=== PATIENT | male | born 1975 | race Hispanic/Latino ===

== ENCOUNTER 2017-01-29 20:34 | Inpatient (IN) | payer MEDICAID, OTHER ==
[2017-01-29 20:35] VITALS: BMI 24.9
[2017-01-29 21:38] LABS: BASO % 0.6 % (0.0-2.0); EOS # 0.2 K/uL (0.0-0.7); EOS % 4.4 % (0.0-4.0); HEMATOCRIT 31.7 % (35.0-51.0); MEAN CELL VOLUME 92.6 fL (80.0-94.0); MEAN CORPUSCULAR HEMOGLOBIN 31.6 pg (27.0-31.0); MEAN CORPUSCULAR HGB CONC 34.1 g/dL (33.0-37.0); MEAN PLATELET VOLUME 7.6 fL (7.2-11.7); MONO # 0.3 K/uL (0.0-0.8); MONO % 7.5 % (0.0-10.0); NRBC % 0.1 % (0.0-2.0); RED CELL DISTRIBUTION WIDTH 15.6 % (11.5-14.5); WHITE BLOOD COUNT 3.7 K/uL (4.8-10.8)
[2017-01-29 21:47] LABS: CHLORIDE 107 mmol/L (98-107); SODIUM 137 mmol/L (132-148)
[2017-01-29 21:48] LABS: POTASSIUM 3.8 mmol/L (3.6-5.2)
[2017-01-29 21:49] LABS: GFR AFRICAN-AMERICAN > 60
[2017-01-29 21:50] LABS: ALB/GLOB RATIO 0.8 (1.0-2.1); ALKALINE PHOSPHATASE 119 U/L (38-126); ALT/SGPT 43 U/L (21-72); AST/SGOT 66 U/L (17-59); BILIRUBIN,TOTAL 2.4 mg/dL (0.2-1.3); BLOOD UREA NITROGEN 8 mg/dL (9-20); CALCIUM 7.8 mg/dl (8.6-10.4); CARBON DIOXIDE 23 mmol/L (22-30); GLUCOSE,RANDOM 92 mg/dL (75-110)
[2017-01-29 21:51] LABS: ALCOHOL SERUM < 10 mg/dl (0-10)
[2017-01-29 22:08] LABS: RBC URINE 3 /hpf (0-3); URINE BACTERIA OCC (<OCC); URINE BILIRUBIN NEGATIVE (NEGATIVE); URINE BLOOD NEGATIVE (NEGATIVE); URINE COLOR Yellow (YELLOW); URINE GLUCOSE (UA) NORMAL (Normal); URINE KETONE NEGATIVE (NEGATIVE); URINE LEUKOCYTE ESTERASE NEG Leu/uL (Negative); URINE PROTEIN NEGATIVE (NEGATIVE); WBC URINE 5 /hpf (0-5)
--- NOTE | 2017-01-30 00:39 | C.PDOC ---
Time Seen by Provider: 01/29/17 22:04 Chief Complaint (Nursing): Psychiatric Evaluation Past Medical History Vital Signs: Last Vital Signs Temp 98.3 F 01/29/17 20:39 Pulse 87 01/29/17 20:39 Resp 16 01/29/17 20:39 BP 136/76 01/29/17 20:39 Pulse Ox 100 01/29/17 20:39 - Medical History PMH: Anxiety, Bipolar Disorder, COPD, Depression, HTN, Post Traumatic Stress Disorder Denies: Diabetes, Hepatitis, HIV, Chronic Kidney Disease, Seizures, Sexually Transmitted Disease Surgical History: Hernia Repair - [facility] Procedures CLOSURE SKIN & SUBCUTANEOUS NEC (03/18/06) DRUG DETOXIFICATION (05/11/15) INJECT/INFUSE ELECTROLYT (07/07/15) INJECT/INFUSE NEC (07/07/15) TETANUS TOXOID ADMINIST (03/18/06) Family History: States: Unknown Family Hx - Social History Hx Tobacco Use: Yes Hx Alcohol Use: No Hx Substance Use: Yes (last use last week (percocet)) - Immunization History Hx Tetanus Toxoid Vaccination: No Hx Influenza Vaccination: No Hx Pneumococcal Vaccination: No ED Course And Treatment - Laboratory Results Result Diagrams: 01/29/17 21:32 01/29/17 21:32 O2 Sat by Pulse Oximetry: 100 Pulse Ox Interpretation: Normal Disposition Discussed With DrBre: Ganesh Wood Comment: accepted the pt on his service and took over the care at 12:37AM Doctor Will See Patient In The: Hospital Counseled Patient/Family Regarding: Studies Performed, Diagnosis - Disposition Disposition: HOSPITALIZED Disposition Time: 21:00 Condition: FAIR - POA Present On Arrival: None - Clinical Impression Clinical Impression: Major depression Decision To Admit - Pt Status Changed To: Hospital Disposition Of: Inpatient - Admit Certification Admit to Inpatient:: After my assessment, the patient will require hospitalization for at least two midnights. This is because of the severity of symptoms shown, intensity of services needed, and/or the medical risk in this patient being treated as an outpatient. - InPatient: Physician Admission Certification: I certify that this patient requires 2 or more midnights of care for the following reason:: After my assessment, the patient will require hospitalization for at least two midnights. This is because of the severity of symptoms shown, intensity of services needed, and/or the medical risk in this patient being treated as an outpatient. - . Bed Request Type: Psychiatry Admitting Physician: Ganesh Wood Patient Diagnosis: Major depression
--- NOTE | 2017-01-30 12:48 | PCM.PSYCH ---
Initial Psychiatric Evaluation - Initial Psychiatric Evaluation Type of Admission: Voluntary Legal Status: Capacity Chief Complaint (in patient's own words): I was feeling suicidal History of Present Illness and Precipitating Events: Patient is a 41 years old male who is currently homeless, came to the ED with a history of major depressive disorder and alcohol use disorder came to the hospital because of depressed mood and suicidal ideation with a plan to kill OD. Patient reports a long history of depressive disorder. As per the patient he has been admitted multiple times in psychiatric hospitals, last discharged from [facility] more than 5 months ago. As per the patient he stopped following up with his psychiatrist and started drinking. He has been drinking more than 6-10 48 oz beers on a daily basis. He stopped drinking 1 weeks ago, but started becoming increasingly depressed. As per the patient he doesnt have any family, and job and doesnt have any place to live. Yesterday he became increasingly depressed and suicidal, so came to the hospital to get help. Patient reports of depressed mood, and reports of feelings of hopelessness or helplessness. He says that, 'there is no use of living like this.' He also reports of anhedonia, poor appetite and insomnia. Patient denies any racing of thoughts, flight of ideas or any manic symptoms. He also denies any auditory or visual hallucinations or any psychotic symptoms. Denies any homicidal ideation. Patient denies any drugs use. Past medical history None Past Psychiatric History - Past Psychiatric History Previous Treatment History: Inpatient Pertinent Medical Hx (Current Medical&Sleep Prob, Allergies): Allergies Allergy/AdvReac Type Severity Reaction Status Date / Time amoxicillin Allergy RASH Verified 01/29/17 20:45 Penicillins Allergy RASH Verified 01/29/17 20:45 No Known Home Med 01/29/17 Review of Systems - Review of Systems All systems: reviewed and no additional remarkable complaints except - Psychiatric Psychiatric: Anxiety, Behavioral Changes, Depression, Suicidal Ideation Mental Status Examination - Affect Affect: Constricted, Depressed - Motor Activity Motor Activity: Calm - Reliability in Providing Information Reliability in Providing Information: Good - Speech Speech: Organized - Mood Mood: Depressed, Anxious - Formal Thought Process Formal Thought Process: Delusions, Paranoia - Obsessions/Compulsions Obsessions: No Compulsions: No - Cognitive Functions Orientation: Person, Place, Situation, Time Sensorium: Alert Attention/Concentration: Attentive Abstract Thinking: [place] Estimate of Intelligence: Below average Judgement: Imparied, as evidence by: Poor judgement, Imparied, as evidence by: Lack of insight into illness - Risk Risk: Suicidal, Diminished functioning - Strength & Assets Inventory Strength & Assets Inventory: Cooperative - Limitations Limitations: Living alone DSM 5 DX - DSM 5 DSM 5 Diagnosis: Major depressive disorder recurrent severe with psychotic features Alcohol use disorder severe Cocaine use disorder moderate - Recommended/Plan of Treatment Treatment Recommendations and Plan of Treatment: Major depressive disorder recurrent severe with psychotic features CBT Psychoeducation Supportive therapy, individual therapy Zoloft 50 mg PO Daily Trazodone 50 mg pO QHS Neurontin 100 mg PO TID Alcohol use disorder severe CBT Psychoeducation Supportive therapy, individual therapy Use [place] for abstinence Cocaine use disorder moderate CBT Psychoeducation Supportive therapy, individual therapy Use [place] for abstinence - Smoking Cessation Smoking Cessation Initiated: No
--- NOTE | 2017-01-31 22:05 | PCM.PYCHPN ---
Psychiatric Progress Note - Psychiatric Progress Note Patient seen today, length of contact: 16 min Patient Chief Complaint: I am still feeling depressed. Problems Identified/Issues Discussed: Patient seen and evaluated, chart reviewed and discussed with the nurse. Pt still reports depressed mood, feelings of hopelessness and helplessness, poor sleep and poor appetite. He appeared disheveled, unkempt and paranoid. However he denies any AVH. He is taking medications and Denies any side effects. Medication Change: Yes (increase zoloft) Medical Record Reviewed: Yes Mental Status Examination - Cognitive Function Orientation: Person, Place, Situation, Time Memory: Intact Attention: WNL Concentration: Poor Association: WNL Fund of Knowledge: Poor - Mood Mood: Depressed, Anxious - Affect Affect: Constricted - Speech Speech: Soft - Formal Thought Process Formal Thought Process: Paranoia - Suicidal Ideation Suicidal Ideation: No - Homicidal Ideation Homicidal Ideation: No Goal/Treatment Plan - Goal/Treatment Plan Need for Continued Stay: Discharge may exacerbated symptoms, Severe functional impairment Progress Toward Problem(s) and Goals/Treatment Plan: Major depressive disorder recurrent severe with psychotic features CBT Psychoeducation Supportive therapy, individual therapy Zoloft 50 mg PO Daily Trazodone 50 mg pO QHS Neurontin 100 mg PO TID Alcohol use disorder severe CBT Psychoeducation Supportive therapy, individual therapy Use [place] for abstinence Cocaine use disorder moderate CBT Psychoeducation Supportive therapy, individual therapy Use [place] for abstinence - Smoking Cessation Smoking Cessation Initiated: No
--- NOTE | 2017-02-01 13:55 | PCM.PYCHPN ---
Psychiatric Progress Note - Psychiatric Progress Note Patient seen today, length of contact: 16 min Patient Chief Complaint: I am still feeling depressed. Problems Identified/Issues Discussed: Patient seen and evaluated, chart reviewed and discussed with the nurse. Patient says that he is still feeling down. He also complains of muscle aches. He appears disheveled and unkempt. Patient is still internally preoccupied with the of this friend and saying repeatedly that, 'my friends on me.' He reports that he has been having a poor appetite because everything tastes weird. He also admits to sleeping excessively due to constant fatigue. Patient also admits to persecutory delusions but denies auditory or visual hallucinations or suicidal or homicidal ideations. Medication Change: Yes (increase zoloft, start risperdal) Medical Record Reviewed: Yes Mental Status Examination - Cognitive Function Orientation: Person, Place, Situation, Time Memory: Intact Attention: WNL Concentration: Poor Association: WNL Fund of Knowledge: Poor - Mood Mood: Depressed, Anxious - Affect Affect: Constricted - Speech Speech: Soft - Formal Thought Process Formal Thought Process: Paranoia - Suicidal Ideation Suicidal Ideation: No - Homicidal Ideation Homicidal Ideation: No Goal/Treatment Plan - Goal/Treatment Plan Need for Continued Stay: Discharge may exacerbated symptoms, Severe functional impairment Progress Toward Problem(s) and Goals/Treatment Plan: Major depressive disorder recurrent severe with psychotic features CBT Psychoeducation Supportive therapy, individual therapy Zoloft 100 mg PO Daily Trazodone 50 mg pO QHS Neurontin 100 mg PO TID Risperdal 1 mg pO QHS Cogentin 1 mg PO QHS Alcohol use disorder severe CBT Psychoeducation Supportive therapy, individual therapy Use [place] for abstinence Cocaine use disorder moderate CBT Psychoeducation Supportive therapy, individual therapy Use [place] for abstinence - Smoking Cessation Smoking Cessation Initiated: No
--- NOTE | 2017-02-02 10:53 | PCM.PYCHPN ---
Psychiatric Progress Note - Psychiatric Progress Note Patient seen today, length of contact: 16 min Patient Chief Complaint: I am still feeling depressed. Problems Identified/Issues Discussed: Patient seen and evaluated, chart reviewed and discussed with the nurse. 41 yo M on follow up presents with chief complaint sleepy and depressed. Reports that he sleeps excessively and is only awake for about 3 hours a day. Patient is experiencing anxiety concerning his friend's , and he feels that people are out to get him. General impression is that patient is depressed, tired, slow moving. Patient is experiencing nausea, body aches, congestion with epistaxis. Medication side effects include feeling like his hands are weak. Denies thoughts of hurting himself, hurting other people, seeing and hearing things that are not there, feeling like he is being followed , shortness of breath, chest pain, fever, vomiting, abdominal pain, headaches. Medication Change: Yes (increase zoloft, stop risperdal, start remeron) Medical Record Reviewed: Yes Mental Status Examination - Cognitive Function Orientation: Person, Place, Situation, Time Memory: Intact Attention: WNL Concentration: Poor Association: WNL Fund of Knowledge: Poor - Mood Mood: Depressed, Anxious - Affect Affect: Constricted - Speech Speech: Soft - Formal Thought Process Formal Thought Process: Paranoia - Suicidal Ideation Suicidal Ideation: No - Homicidal Ideation Homicidal Ideation: No Goal/Treatment Plan - Goal/Treatment Plan Need for Continued Stay: Discharge may exacerbated symptoms, Severe functional impairment Progress Toward Problem(s) and Goals/Treatment Plan: Major depressive disorder recurrent severe with psychotic features CBT Psychoeducation Supportive therapy, individual therapy Zoloft 150 mg PO Daily Start remeron 15 mg PO QHS Trazodone 150 mg pO QHS Neurontin 100 mg PO TID D/C Risperdal 1 mg pO QHS D/C Cogentin 1 mg PO QHS Alcohol use disorder severe CBT Psychoeducation Supportive therapy, individual therapy Use [place] for abstinence Cocaine use disorder moderate CBT Psychoeducation Supportive therapy, individual therapy Use [place] for abstinence - Smoking Cessation Smoking Cessation Initiated: No
[2017-02-03] MEDS ORDERED: Aluminum Hydroxide/Magnesium Hydroxide Susp (30 mL) PO STA (01:06)
--- NOTE | 2017-02-03 13:23 | PCM.PYCHPN ---
Psychiatric Progress Note - Psychiatric Progress Note Patient seen today, length of contact: 16 min Patient Chief Complaint: I am still feeling depressed. Problems Identified/Issues Discussed: Patient seen and evaluated, chart reviewed and discussed with the nurse. 41 yo M was discussed at the morning meeting and it was reported that he was depressed, delusional feeling that there were people out to get him, vomiting undigested food, and nosebleeds. Upon follow up patient reports he if feeling better compared to yesterday, does not feel like people are out to get him, but feels intermittently that he wants to join his friend. Patient states that he continues to constantly thinking about his friend dying and trying to resuscitate him. Slept about 4 hours, waking up twice. Patient is tired, vomits when eats, positive for congestion, intermittent epistaxis, heart burn that was treated with Maalox. Denies wanting to hurt self or others, hearing or seeing things that are not there, nausea, sweating. General impression includes depressed affect and persistent thought pattern of friend. Medication Change: Yes (increase zoloft, start Seroquel) Medical Record Reviewed: Yes Mental Status Examination - Cognitive Function Orientation: Person, Place, Situation, Time Memory: Intact Attention: WNL Concentration: Poor Association: WNL Fund of Knowledge: Poor - Mood Mood: Depressed, Anxious - Affect Affect: Constricted - Speech Speech: Soft - Formal Thought Process Formal Thought Process: Delusions, Paranoia - Suicidal Ideation Suicidal Ideation: No - Homicidal Ideation Homicidal Ideation: No Goal/Treatment Plan - Goal/Treatment Plan Need for Continued Stay: Discharge may exacerbated symptoms, Severe functional impairment Progress Toward Problem(s) and Goals/Treatment Plan: Major depressive disorder recurrent severe with psychotic features CBT Psychoeducation Supportive therapy, individual therapy Zoloft 200 mg PO Daily Remeron 15 mg PO QHS Trazodone 150 mg pO QHS Neurontin 100 mg PO TID Seroquel 50 mg PO BID Alcohol use disorder severe CBT Psychoeducation Supportive therapy, individual therapy Use [place] for abstinence Cocaine use disorder moderate CBT Psychoeducation Supportive therapy, individual therapy Use [place] for abstinence - Smoking Cessation Smoking Cessation Initiated: No
--- NOTE | 2017-02-04 13:22 | PCM.PYCHPN ---
Psychiatric Progress Note - Psychiatric Progress Note Patient seen today, length of contact: 16 min Patient Chief Complaint: I am feeling depressed. Problems Identified/Issues Discussed: Patient seen and evaluated, chart reviewed and discussed with the nurse. As per the staff, pt remained isolated and withdrawn. He reports depressed mood and at times feelings of hopelessness and helplessness. He reports a bit improvement in his mood and thoughts process. His symptoms are improving but needs more time to stabilize. After care discussed, support and psychoeducation given. Medication Change: Yes (increase zoloft, start Seroquel) Medical Record Reviewed: Yes Mental Status Examination - Cognitive Function Orientation: Person, Place, Situation, Time Memory: Intact Attention: WNL Concentration: Poor Association: WNL Fund of Knowledge: Poor - Mood Mood: Depressed, Anxious - Affect Affect: Constricted - Speech Speech: Soft - Formal Thought Process Formal Thought Process: Delusions, Paranoia - Suicidal Ideation Suicidal Ideation: No - Homicidal Ideation Homicidal Ideation: No Goal/Treatment Plan - Goal/Treatment Plan Need for Continued Stay: Discharge may exacerbated symptoms, Severe functional impairment Progress Toward Problem(s) and Goals/Treatment Plan: Major depressive disorder recurrent severe with psychotic features CBT Psychoeducation Supportive therapy, individual therapy Zoloft 200 mg PO Daily Remeron 15 mg PO QHS Trazodone 150 mg pO QHS Neurontin 100 mg PO TID Seroquel 50 mg PO BID Alcohol use disorder severe CBT Psychoeducation Supportive therapy, individual therapy Use [place] for abstinence Cocaine use disorder moderate CBT Psychoeducation Supportive therapy, individual therapy Use [place] for abstinence
[2017-02-04] MEDS: Aluminum Hydroxide/Magnesium Hydroxide Susp (30 mL) PO PRN (19:49)
--- NOTE | 2017-02-05 10:25 | PCM.PYCHPN ---
Psychiatric Progress Note - Psychiatric Progress Note Patient seen today, length of contact: 16 min Patient Chief Complaint: I am feeling depressed. Problems Identified/Issues Discussed: Patient seen and evaluated, chart reviewed and discussed with nurse. 41 yo M was discussed at the morning meeting and it was reported that he is social, slept well, well kept, visible improvement. Upon follow up patient reports he if feeling better compared to yesterday, experiencing some depression. Describes mood including intermittent agitation, denies anxiety and anger. Slept well for 7 hours, only woke up to use the restroom. Positive for body aches, nonpruritic rash bilaterally above the ankles, decreased appetite. Patient reports medication side effects of foggy brain and slowness that began once he started the medications. Denies wanting to hurt self or others, hearing or seeing things that are not there, feeling like people are out to get him or following him. Denies chest pain, shortness of breath, headache, nausea, vomiting, abdominal pain, fever, chills, sweating, shaking. Patient's plan after discharge includes a homeless nursing home and outpatient treatment. General impression includes depressed mood improvement from yesterday, slow demeanor. Medication Change: Yes (increase zoloft, start Seroquel, medicine consulted) Medical Record Reviewed: Yes Mental Status Examination - Cognitive Function Orientation: Person, Place, Situation, Time Memory: Intact Attention: WNL Concentration: Poor Association: WNL Fund of Knowledge: Poor - Mood Mood: Depressed, Anxious - Affect Affect: Constricted - Speech Speech: Soft - Formal Thought Process Formal Thought Process: Delusions, Paranoia - Suicidal Ideation Suicidal Ideation: No - Homicidal Ideation Homicidal Ideation: No Goal/Treatment Plan - Goal/Treatment Plan Need for Continued Stay: Discharge may exacerbated symptoms, Severe functional impairment Progress Toward Problem(s) and Goals/Treatment Plan: Major depressive disorder recurrent severe with psychotic features CBT Psychoeducation Supportive therapy, individual therapy Zoloft 200 mg PO Daily Remeron 15 mg PO QHS Trazodone 150 mg pO QHS Neurontin 100 mg PO TID Seroquel 50 mg PO BID Alcohol use disorder severe CBT Psychoeducation Supportive therapy, individual therapy Use [place] for abstinence Cocaine use disorder moderate CBT Psychoeducation Supportive therapy, individual therapy Use [place] for abstinence
--- NOTE | 2017-02-05 11:39 | CP.PCM.CON ---
<Ba Nugent - Last Filed: 02/05/17 19:10> History of Present Illness - History of Present Illness History of Present Illness: CC: rash HPI: 41 year old male with PMHx significant for untreated HCV diagnosed 13 years ago, left ear cholesteatoma, history of suicide and depression presents with new onset bilateral erythematous rash with mild swelling on shins. Patient states that the rash just appeared three days ago. He denies any trauma, shaving of legs, new colognes, new clothing or detergent or lotions applied to the area. Patient initially presented January 30, 2017 to [facility] after having suicidal ideations with intent. Patient states that he did not have the rash on admission however it just apeared. Patient cannot think of any factors that might have brought on this onset. Patient states that he was diagnosed with HCV 13 years ago and learned of the results through labwork testing at [facility]. Patient states that he never sought out treatment options because he was not sure where to go. At this time, patient denies subjective fevers or chills, nausea, vomiting, diarrhea, constipation, chest pain, palpitations, or pain at the site at this time. PMHX- as mentioned above PSHx- surgery for cholesteatoma removal; inguinal repair Fam Hx- Dad had a tumor ( unspecified) Meds- Refer to current MAR ( Maalox, Clonidine, Gabapentin, Ibuprofen, Remeron , Seroquel, Zoloft, Trazodone Social Hx- smokes 8 cigarettes a day, former heroin user ( last used 3 wks ago) Patient used to inject himself years prior but in recent years, snorts heroin, former cocaine user ( last used years ago) chronic alcohol use (6-7 beers a day) Allergies- Amoxicillin results in hives Review of Systems - Constitutional Constitutional: absent: Daytime Sleepiness, Excessive Sweating, Frequent Falls, Headache - EENT Eyes: absent: Blurred Vision, Change in Vision Ears: absent: Ear Discharge, Ear Pain Nose/Mouth/Throat: absent: Nasal Congestion, Nasal Discharge - Cardiovascular Cardiovascular: absent: Chest Pain, Chest Pain at Rest - Respiratory Respiratory: absent: Dyspnea, Hemoptysis, Dyspnea on Exertion - Gastrointestinal Gastrointestinal: absent: Abdominal Pain, Nausea, Vomiting - Genitourinary Genitourinary: absent: Dysuria, Freq UTI - Musculoskeletal Musculoskeletal: absent: Back Pain, Loss of Height - Integumentary Integumentary: Change in Pigmentation, Dry Skin, Rash, Swelling. absent: Bleeding Lesions, Change in Hair, Pruritus, Skin Pain, Wounds - Neurological Neurological: absent: Abnormal Hearing, Abnormal Movements, Confusion - Psychiatric Psychiatric: Anxiety. absent: Anhedonia, Depression - Endocrine Endocrine: absent: Change in Body Appearance, Fatigue - Hematologic/Lymphatic Hematologic: absent: Easy Bleeding, Easy Bruising Past Patient History - Infectious Disease Hx of Infectious Diseases: None - Tetanus Immunizations Tetanus Immunization: Unknown - Past Social History Smoking Status: Light Smoker < 10 Cigarettes Daily Alcohol: > 2 Drinks/Day Drugs: Cocaine, Opiates - CARDIAC Hx Cardiac Disorders: No - PULMONARY Hx Respiratory Disorders: No - NEUROLOGICAL Hx Neurological Disorder: No Hx Seizures: No - HEENT Hx HEENT Problems: Yes Other/Comment: Apparent hearing deficit OD - RENAL Hx Chronic Kidney Disease: No - ENDOCRINE/METABOLIC Hx Endocrine Disorders: No - HEMATOLOGICAL/ONCOLOGICAL Hx Blood Disorders: No Hx AIDS: No Hx Anemia: No Hx Blood Transfusions: No Hx Blood Transfusion Reaction: No Hx Bruising: No Hx Cancer: No Hx Chemotherapy: No Hx Cirrhosis: Yes (Fatty/No Ascites, Pancytopenia) Hx Hepatitis C: Yes Hx Human Immunodeficiency Virus (HIV): No Other/Comment: Pancytopenia - INTEGUMENTARY Hx Dermatological Problems: No - MUSCULOSKELETAL/RHEUMATOLOGICAL Hx Musculoskeletal Disorders: No - GASTROINTESTINAL Hx Gastrointestinal Disorders: Yes (ventral hernia) Hx Fatty Liver Disease: Yes Hx Liver Failure: Yes (Fatty Liver disease. Non-ascites.) Other/Comment: Edema secondary to Portal Hypertension - GENITOURINARY/GYNECOLOGICAL Hx Genitourinary Disorders: No Hx Sexually Transmitted Disorders: No - PSYCHIATRIC Hx Substance Use: Yes - SURGICAL HISTORY Hx Surgeries: No Other/Comment: left ear - ANESTHESIA Hx Anesthesia: No Hx Anesthesia Reactions: (severe nausea) Meds Allergies/Adverse Reactions: Allergies Allergy/AdvReac Type Severity Reaction Status Date / Time amoxicillin Allergy RASH Verified 01/29/17 20:45 Penicillins Allergy RASH Verified 01/29/17 20:45 - Medications Medications: Current Medications Al Hydrox/Mg Hydrox/Simethicone (Maalox 30 Ml) 30 ml PO Q8H PRN PRN Reason: Indigestion / Heartburn Last Admin: 04/27/17 19:49 Dose: 30 ml Clonidine HCl (Catapres) 0.1 mg PO Q6 PRN PRN Reason: opiate withdrawal Gabapentin (Neurontin) 100 mg PO TID [facility] Last Admin: 02/05/17 11:16 Dose: Not Given Hydroxyzine HCl (Atarax) 25 mg PO Q6 PRN PRN Reason: Anxiety Last Admin: 02/03/17 21:01 Dose: 25 mg Ibuprofen (Motrin Tab) 600 mg PO Q6 PRN PRN Reason: Pain, moderate (4-7) Last Admin: 02/03/17 21:01 Dose: 600 mg Mirtazapine (Remeron) 15 mg PO HS [facility] Last Admin: 02/04/17 22:23 Dose: 15 mg Quetiapine Fumarate (Seroquel) 50 mg PO BID [facility] Last Admin: 02/05/17 11:16 Dose: Not Given Sertraline HCl (Zoloft) 200 mg PO DAILY [facility] Last Admin: 02/05/17 11:16 Dose: Not Given Trazodone HCl (Desyrel) 100 mg PO HS PRN PRN Reason: Insomnia Last Admin: 02/04/17 22:23 Dose: 100 mg Physical Exam - Constitutional Appears: Non-toxic, No Acute Distress - Head Exam Head Exam: ATRAUMATIC, NORMAL INSPECTION, NORMOCEPHALIC - Eye Exam Eye Exam: EOMI, Normal appearance, PERRL Pupil Exam: NORMAL ACCOMODATION - ENT Exam ENT Exam: Mucous Membranes Moist - Neck Exam Neck exam: Positive for: Full Rom, Normal Inspection - Respiratory Exam Respiratory Exam: NORMAL BREATHING PATTERN. absent: Wheezes - Cardiovascular Exam Cardiovascular Exam: +S1, +S2 - GI/Abdominal Exam GI & Abdominal Exam: Normal Bowel Sounds, Soft - Extremities Exam Extremities exam: Positive for: full ROM, normal capillary refill, pedal edema ( trace), pedal pulses present. Negative for: calf tenderness, joint swelling, tenderness Additional comments: erythematous rash on shins bilaterally - Back Exam Back exam: FULL ROM, NORMAL INSPECTION - Neurological Exam Neurological exam: Alert, CN II-XII Intact, Oriented x3 - Psychiatric Exam Psychiatric exam: Anxious - Skin Skin Exam: Dry, Erythema (b/l shins limited to anterior region and some posterior), Intact, Warm Additional comments: superficial vasculature identified on feet b/l Results - Vital Signs Recent Vital Signs: Last Vital Signs Temp 97.5 F L 02/05/17 07:58 Pulse 81 02/05/17 07:58 Resp 20 02/05/17 07:58 BP 125/63 02/05/17 07:58 Pulse Ox 99 01/31/17 07:36 - Labs Result Diagrams: 02/05/17 17:05 02/05/17 17:05 Assessment & Plan (1) Contact eczematous dermatitis Assessment and Plan: Triamcinolone cream applied topically to affected shins twice a day Status: Acute (2) Pancytopenia Assessment and Plan: Thrombocytopenia: Platelets 55-> 52 Consider anemia workup. Hold NSAIDs at this time F/U Venous dopplers Monitor cell counts Discourage excessive alcohol intake Status: Acute (3) HCV (hepatitis C virus) Assessment and Plan: Hx of Hepatitis diagnosed 13 years ago Pt denies ever being treated Follow up Hepatitis panel/ HIV panel Discourage polysubstance use- Patient counseled. Status: Chronic (4) Polysubstance abuse Assessment and Plan: Hx of cocaine, heroin and alcohol use Hx of HCV Patient counseled; coping mechanisms discussed Management per Psych Status: Chronic (5) Depression with suicidal ideation Assessment and Plan: Management per psych Status: Acute (6) Prophylactic measure Assessment and Plan: Ambulates at this time Hold all NSAIDs at this time to decrease risk of bleeding Status: Acute <Mercedez Polanco V - Last Filed: 02/06/17 23:24> Meds - Medications Medications: Current Medications Al Hydrox/Mg Hydrox/Simethicone (Maalox 30 Ml) 30 ml PO Q8H PRN PRN Reason: Indigestion / Heartburn Last Admin: 02/06/17 22:17 Dose: 30 ml Clonidine HCl (Catapres) 0.1 mg PO Q6 PRN PRN Reason: opiate withdrawal Gabapentin (Neurontin) 100 mg PO TID [facility] Last Admin: 02/06/17 18:12 Dose: Not Given Hydroxyzine HCl (Atarax) 25 mg PO Q6 PRN PRN Reason: Anxiety Last Admin: 02/03/17 21:01 Dose: 25 mg Quetiapine Fumarate (Seroquel) 50 mg PO BID [facility] Last Admin: 02/06/17 18:12 Dose: Not Given Sertraline HCl (Zoloft) 200 mg PO DAILY [facility] Last Admin: 02/06/17 10:13 Dose: Not Given Trazodone HCl (Desyrel) 100 mg PO HS PRN PRN Reason: Insomnia Last Admin: 02/06/17 22:17 Dose: 100 mg Triamcinolone Acetonide (Kenalog 0.1% Cream) 0 appl TOP BID [facility] Last Admin: 02/06/17 19:43 Dose: 1 appl Results - Vital Signs Recent Vital Signs: Last Vital Signs Temp 97.5 F L 02/06/17 07:35 Pulse 76 02/06/17 16:56 Resp 18 02/06/17 07:35 BP 129/68 02/06/17 16:56 Pulse Ox 99 02/06/17 07:35 - Labs Result Diagrams: 02/06/17 08:18 02/06/17 08:18 Labs: Laboratory Results - last 24 hr 02/05/17 02/06/17 02/06/17 17:05 08:18 08:18 WBC 2.6 L RBC 3.56 L Hgb 11.2 L Hct 33.3 L MCV 93.7 MCH 31.4 H MCHC 33.6 RDW 15.8 H Plt Count 48 L MPV 8.0 Neut % (Auto) 52.8 Lymph % (Auto) 29.5 [place] % (Auto) 9.0 Eos % (Auto) 7.5 H Baso % (Auto) 1.2 Neut # 1.4 L Lymph # 0.8 L [place] # 0.2 Eos # 0.2 Baso # 0.0 Sodium 139 Potassium 3.8 Chloride 108 H Carbon Dioxide 22 Anion Gap 13 BUN 10 Creatinine 0.5 L Est GFR ( Amer) > 60 Est GFR (Non-Af Amer) > 60 Random Glucose 80 Calcium 7.8 L Phosphorus 4.0 Magnesium 1.9 Total Bilirubin 2.3 H AST 52 ALT 31 Alkaline Phosphatase 88 Total Protein 5.8 L Albumin 2.4 L Globulin 3.3 Albumin/Globulin Ratio 0.7 L Hep Bs Ag Neutralizatn Confirmed positive H Attending/Attestation - Attestation I have personally seen and examined this patient.: Yes I have fully participated in the care of the patient.: Yes I have reviewed all pertinent clinical information: Yes Notes (Text): This is late computer entry for 02/05/17. Patient seen, examined and case discussed with day-time resident. Patient reporting rash over anterior portion over ankles for past 3 days. Patient denies associated pruritus, denies edema, denies pus, denies skin breakdown. patient denies any known allergies including nickel, metal, denies wearing at ankle bracelets, new socks, new clothing, denies new creams/lotions or anything being currently applied to the area. Note: patient is pancytopenia, patient has a history of untreated hepatitis C and B per EMR. Upon review of EMR, patient has history of hepatic cirrhosis and current drug use. Patient does not have any petechiae or skin manifestation of livedo reticularis and no bleeding episodes. Patient ordered for lower extremity doppler r/o dv given mild trace edema located bilateral ankles but have low suspicion for DVT. Patient ordered for blood work today. Patient is pancytopenic; will continue to monitor and will need referral to heme-onc as outpatient; contributing factors including hepatitis c, hepatic cirrhosis, and associated drug use. Repeat hepatitis and HIV today. Patient started on triamincolone cream for rash which appears like eczema. Will continue to monitor. Discontinue NSAID given hx of hepatitis C/Hepatic cirrhosis, and pancytopenia in addition to reduce bleeding risk.
[2017-02-05 17:15] LABS: BASO % 0.8 % (0.0-2.0); EOS # 0.2 K/uL (0.0-0.7); EOS % 5.5 % (0.0-4.0); HEMATOCRIT 33.3 % (35.0-51.0); LYMPH # 0.9 K/uL (1.0-4.3); LYMPH % 27.3 % (20.0-40.0); MEAN CELL VOLUME 93.7 fL (80.0-94.0); MEAN CORPUSCULAR HEMOGLOBIN 31.4 pg (27.0-31.0); MEAN CORPUSCULAR HGB CONC 33.5 g/dL (33.0-37.0); MEAN PLATELET VOLUME 8.1 fL (7.2-11.7); MONO # 0.3 K/uL (0.0-0.8); MONO % 9.6 % (0.0-10.0); RED CELL DISTRIBUTION WIDTH 15.7 % (11.5-14.5); WHITE BLOOD COUNT 3.3 K/uL (4.8-10.8)
[2017-02-05 17:24] LABS: CHLORIDE 105 mmol/L (98-107)
[2017-02-05 17:25] LABS: POTASSIUM 4.4 mmol/L (3.6-5.2); SODIUM 139 mmol/L (132-148)
[2017-02-05 17:27] LABS: ALB/GLOB RATIO 0.8 (1.0-2.1); ALKALINE PHOSPHATASE 119 U/L (38-126); AST/SGOT 51 U/L (17-59); BLOOD UREA NITROGEN 11 mg/dL (9-20); CARBON DIOXIDE 23 mmol/L (22-30); GFR AFRICAN-AMERICAN > 60; TOTAL PROTEIN 6.1 g/dL (6.3-8.3)
[2017-02-05 17:28] LABS: ALT/SGPT 44 U/L (21-72); CALCIUM 8.1 mg/dl (8.6-10.4); GLUCOSE,RANDOM 105 mg/dL (75-110); PHOSPHOROUS 4.5 mg/dL (2.5-4.5)
[2017-02-06 08:27] LABS: BASO % 1.2 % (0.0-2.0); EOS # 0.2 K/uL (0.0-0.7); EOS % 7.5 % (0.0-4.0); HEMATOCRIT 33.3 % (35.0-51.0); LYMPH # 0.8 K/uL (1.0-4.3); LYMPH % 29.5 % (20.0-40.0); MEAN CELL VOLUME 93.7 fL (80.0-94.0); MEAN CORPUSCULAR HEMOGLOBIN 31.4 pg (27.0-31.0); MEAN CORPUSCULAR HGB CONC 33.6 g/dL (33.0-37.0); MONO # 0.2 K/uL (0.0-0.8); NRBC % 0.1 % (0.0-2.0); RED CELL DISTRIBUTION WIDTH 15.8 % (11.5-14.5); WHITE BLOOD COUNT 2.6 K/uL (4.8-10.8)
[2017-02-06 08:55] LABS: CHLORIDE 108 mmol/L (98-107)
[2017-02-06 08:56] LABS: POTASSIUM 3.8 mmol/L (3.6-5.2); SODIUM 139 mmol/L (132-148)
[2017-02-06 08:58] LABS: ALB/GLOB RATIO 0.7 (1.0-2.1); ALKALINE PHOSPHATASE 88 U/L (38-126); ALT/SGPT 31 U/L (21-72); AST/SGOT 52 U/L (17-59); BILIRUBIN,TOTAL 2.3 mg/dL (0.2-1.3); BLOOD UREA NITROGEN 10 mg/dL (9-20); CARBON DIOXIDE 22 mmol/L (22-30); GFR AFRICAN-AMERICAN > 60; GLUCOSE,RANDOM 80 mg/dL (75-110); TOTAL PROTEIN 5.8 g/dL (6.3-8.3)
[2017-02-06 08:59] LABS: CALCIUM 7.8 mg/dl (8.6-10.4); MAGNESIUM 1.9 mg/dL (1.6-2.3)
--- NOTE | 2017-02-06 09:15 | CP.PCM.PN ---
<RashadHeather lantigua - Last Filed: 02/06/17 15:38> Subjective - Date & Time of Evaluation Date of Evaluation: 02/06/17 Time of Evaluation: 09:11 - Subjective Subjective: Patient seen and examined at bedside. Patient is comfortable and has no complaints currently. He continues to have rash to bilateral ankles. He denies pain or pruritus to area. Patient denies coming in contact with new materials or wearing clothing to ankles. He denies other symptoms including chest pain, shortness of breath, abdominal pain, nausea, vomiting, diarrhea and constipation. Patient instructed he will need to follow-up in the clinic upon discharge for liver function test as he has Hepatitis C and likely Hepatitis B as well. Objective - Vital Signs/Intake and Output Vital Signs (last 24 hours): Temp Pulse Resp BP Pulse Ox 97.5 F L 19 L 18 98/54 L 99 02/06/17 07:35 02/06/17 07:35 02/06/17 07:35 02/06/17 07:35 02/06/17 07:35 - Medications Medications: Current Medications Al Hydrox/Mg Hydrox/Simethicone (Maalox 30 Ml) 30 ml PO Q8H PRN PRN Reason: Indigestion / Heartburn Last Admin: 02/04/17 19:49 Dose: 30 ml Clonidine HCl (Catapres) 0.1 mg PO Q6 PRN PRN Reason: opiate withdrawal Gabapentin (Neurontin) 100 mg PO TID [facility] Last Admin: 02/05/17 17:45 Dose: Not Given Hydroxyzine HCl (Atarax) 25 mg PO Q6 PRN PRN Reason: Anxiety Last Admin: 02/03/17 21:01 Dose: 25 mg Mirtazapine (Remeron) 15 mg PO HS [facility] Last Admin: 02/05/17 22:40 Dose: Not Given Quetiapine Fumarate (Seroquel) 50 mg PO BID [facility] Last Admin: 02/05/17 17:46 Dose: Not Given Sertraline HCl (Zoloft) 200 mg PO DAILY [facility] Last Admin: 02/05/17 11:16 Dose: Not Given Trazodone HCl (Desyrel) 100 mg PO HS PRN PRN Reason: Insomnia Last Admin: 02/05/17 22:40 Dose: 100 mg Triamcinolone Acetonide (Kenalog 0.1% Cream) 0 appl TOP BID [facility] - Labs Labs: 02/06/17 08:18 02/06/17 08:18 - Constitutional Appears: Non-toxic, No Acute Distress - Head Exam Head Exam: ATRAUMATIC, NORMAL INSPECTION, NORMOCEPHALIC - Eye Exam Eye Exam: EOMI, Normal appearance - ENT Exam ENT Exam: Mucous Membranes Moist - Neck Exam Neck Exam: Normal Inspection - Respiratory Exam Respiratory Exam: Clear to Ausculation Bilateral, NORMAL BREATHING PATTERN. absent: Rales, Rhonchi, Wheezes - Cardiovascular Exam Cardiovascular Exam: +S1, +S2. absent: Tachycardia - GI/Abdominal Exam GI & Abdominal Exam: Normal Bowel Sounds. absent: Guarding, Soft - Extremities Exam Extremities Exam: absent: Pedal Edema, Tenderness Additional comments: patches of erythema to bilateral ankles - Neurological Exam Neurological Exam: Alert, Awake, Oriented x3 - Psychiatric Exam Psychiatric exam: Normal Affect, Normal Mood - Skin Skin Exam: Intact, Rash Additional comments: see extremity exam Assessment and Plan - Assessment and Plan (Free Text) Assessment: (1) Contact eczematous dermatitis Assessment and Plan: Continue Triamcinolone cream applied topically to affected shins twice daily for two weeks. Venous Dopplers negative Status: Acute (2) Pancytopenia Assessment and Plan: WBC 2.6, Hemoglobin 11.1, Hematocrit 33.3, Platelets 48 History of Hepatitis C, no treatment Should follow-up with hematology/oncology as outpatient Hold NSAIDs at this time Monitor cell counts Discourage excessive alcohol intake Status: Acute (3) HCV (hepatitis C virus) Assessment and Plan: Hx of Hepatitis diagnosed 13 years ago Pt denies ever being treated Hepatitis Panel: Hep Bs Antigen positive, Hep C Antibody reactive. HIV negative Total Bilirubin elevated 2.3, albumin low 2.4 Repeat LFTs for tomorrow Instructed patient to follow-up in [facility] on discharge for LFTs Status: Chronic (4) Polysubstance abuse Assessment and Plan: Hx of cocaine, heroin and alcohol use Hx of HCV Patient counseled; coping mechanisms discussed Management per Psych Status: Chronic (5) Depression with suicidal ideation Assessment and Plan: Management per psych Status: Acute (6) Prophylactic measure Assessment and Plan: Ambulates at this time Hold all NSAIDs at this time to decrease risk of bleeding Status: Acute <Zion Mai - Last Filed: 02/06/17 15:52> Objective - Vital Signs/Intake and Output Vital Signs (last 24 hours): Temp Pulse Resp BP Pulse Ox 97.5 F L 19 L 18 98/54 L 99 02/06/17 07:35 02/06/17 07:35 02/06/17 07:35 02/06/17 07:35 02/06/17 07:35 - Medications Medications: Current Medications Al Hydrox/Mg Hydrox/Simethicone (Maalox 30 Ml) 30 ml PO Q8H PRN PRN Reason: Indigestion / Heartburn Last Admin: 02/04/17 19:49 Dose: 30 ml Clonidine HCl (Catapres) 0.1 mg PO Q6 PRN PRN Reason: opiate withdrawal Gabapentin (Neurontin) 100 mg PO TID [facility] Last Admin: 02/06/17 14:51 Dose: Not Given Hydroxyzine HCl (Atarax) 25 mg PO Q6 PRN PRN Reason: Anxiety Last Admin: 02/03/17 21:01 Dose: 25 mg Mirtazapine (Remeron) 15 mg PO HS [facility] Last Admin: 02/05/17 22:40 Dose: Not Given Quetiapine Fumarate (Seroquel) 50 mg PO BID [facility] Last Admin: 02/06/17 10:12 Dose: Not Given Sertraline HCl (Zoloft) 200 mg PO DAILY [facility] Last Admin: 02/06/17 10:13 Dose: Not Given Trazodone HCl (Desyrel) 100 mg PO HS PRN PRN Reason: Insomnia Last Admin: 02/05/17 22:40 Dose: 100 mg Triamcinolone Acetonide (Kenalog 0.1% Cream) 0 appl TOP BID [facility] Last Admin: 02/06/17 10:12 Dose: Not Given - Labs Labs: 02/06/17 08:18 02/06/17 08:18 Attending/Attestation - Attestation I have personally seen and examined this patient.: Yes I have fully participated in the care of the patient.: Yes I have reviewed all pertinent clinical information, including history, physical exam and plan: Yes Notes (Text): 02/06/17 15:50 Medical Attending: Patient was seen and examined by me. He was walking in the hallway. He was walking without assistance. Tolerating diet. He reported he felt depressed but otherwise ok. Would continue with the triamcinolone cream of the lower extremities at this time. He should also follow up with the [facility] in the future for future LFT checks
[2017-02-06] MEDS: Aluminum Hydroxide/Magnesium Hydroxide Susp (30 mL) PO PRN (22:17)
[2017-02-07 08:32] LABS: BASO % 0.6 % (0.0-2.0); EOS # 0.2 K/uL (0.0-0.7); EOS % 7.9 % (0.0-4.0); HEMATOCRIT 34.4 % (35.0-51.0); LYMPH # 0.9 K/uL (1.0-4.3); MEAN CELL VOLUME 93.1 fL (80.0-94.0); MEAN CORPUSCULAR HEMOGLOBIN 31.7 pg (27.0-31.0); MEAN PLATELET VOLUME 7.9 fL (7.2-11.7); MONO # 0.3 K/uL (0.0-0.8); MONO % 9.4 % (0.0-10.0); RED CELL DISTRIBUTION WIDTH 15.6 % (11.5-14.5); WHITE BLOOD COUNT 2.8 K/uL (4.8-10.8)
[2017-02-07 08:41] LABS: CHLORIDE 108 mmol/L (98-107); POTASSIUM 4.3 mmol/L (3.6-5.2); SODIUM 139 mmol/L (132-148)
[2017-02-07 08:43] LABS: AST/SGOT 53 U/L (17-59); BILIRUBIN,TOTAL 2.4 mg/dL (0.2-1.3); CARBON DIOXIDE 24 mmol/L (22-30); GFR AFRICAN-AMERICAN > 60
[2017-02-07 08:44] LABS: ALB/GLOB RATIO 0.8 (1.0-2.1); ALKALINE PHOSPHATASE 90 U/L (38-126); ALT/SGPT 43 U/L (21-72); BLOOD UREA NITROGEN 10 mg/dL (9-20); CALCIUM 8.1 mg/dl (8.6-10.4); GLUCOSE,RANDOM 78 mg/dL (75-110); TOTAL PROTEIN 6.3 g/dL (6.3-8.3)
--- NOTE | 2017-02-07 08:49 | CP.PCM.PN ---
<Heather Finn - Last Filed: 02/07/17 14:59> Subjective - Date & Time of Evaluation Date of Evaluation: 02/07/17 Time of Evaluation: 08:46 - Subjective Subjective: Patient seen and examined at bedside. Patient states he notes the rash to bilateral shins to be less red. He denies abdominal pain, nausea, vomiting, chest pain and shortness of breath. Patient informed he will need to follow-up in the clinic after discharge to be referred to solo musician for portal hypertension, cirrhosis and hepatitis as well as hematology/oncology for pancytopenia and splenomegaly. Objective - Vital Signs/Intake and Output Vital Signs (last 24 hours): Temp Pulse Resp BP Pulse Ox 98.0 F 70 16 121/63 99 02/07/17 07:48 02/07/17 07:48 02/07/17 07:48 02/07/17 07:48 02/06/17 07:35 - Medications Medications: Current Medications Al Hydrox/Mg Hydrox/Simethicone (Maalox 30 Ml) 30 ml PO Q8H PRN PRN Reason: Indigestion / Heartburn Last Admin: 02/06/17 22:17 Dose: 30 ml Clonidine HCl (Catapres) 0.1 mg PO Q6 PRN PRN Reason: opiate withdrawal Gabapentin (Neurontin) 100 mg PO TID [facility] Last Admin: 02/06/17 18:12 Dose: Not Given Hydroxyzine HCl (Atarax) 25 mg PO Q6 PRN PRN Reason: Anxiety Last Admin: 02/03/17 21:01 Dose: 25 mg Quetiapine Fumarate (Seroquel) 50 mg PO BID [facility] Last Admin: 02/06/17 18:12 Dose: Not Given Sertraline HCl (Zoloft) 200 mg PO DAILY [facility] Last Admin: 02/06/17 10:13 Dose: Not Given Trazodone HCl (Desyrel) 100 mg PO HS PRN PRN Reason: Insomnia Last Admin: 02/06/17 22:17 Dose: 100 mg Triamcinolone Acetonide (Kenalog 0.1% Cream) 0 appl TOP BID [facility] Last Admin: 02/06/17 19:43 Dose: 1 appl - Labs Labs: 02/07/17 08:28 02/07/17 08:28 - Constitutional Appears: Non-toxic, No Acute Distress - Head Exam Head Exam: ATRAUMATIC, NORMAL INSPECTION, NORMOCEPHALIC - Eye Exam Eye Exam: EOMI, Normal appearance, PERRL - ENT Exam ENT Exam: Mucous Membranes Moist - Cardiovascular Exam Cardiovascular Exam: +S1, +S2. absent: Tachycardia - GI/Abdominal Exam GI & Abdominal Exam: Normal Bowel Sounds. absent: Distended, Firm - Extremities Exam Additional comments: decreased erythema to bilateral shins, blanchable on exam. - Neurological Exam Neurological Exam: Alert, Awake, Oriented x3 - Psychiatric Exam Psychiatric exam: Normal Affect, Normal Mood - Skin Skin Exam: Intact, Rash Assessment and Plan - Assessment and Plan (Free Text) Assessment: (1) Contact Dermatitis Assessment and Plan: Continue Triamcinolone cream applied topically to affected shins twice daily for two weeks. Possible petechial in nature, platelets low 56 Venous Dopplers negative Status: Acute (2) Pancytopenia Assessment and Plan: WBC 2.8, Hemoglobin 11.7, Hematocrit 34.4, Platelets 56, Neut 1.5 likely secondary to splenomegaly noted on previous Abd/Pelvis CT Heme/onc, Dr. Crisostomo, consulted. Help appreciated. History of Hepatitis C, no treatment Should follow-up with hematology/oncology as outpatient Hold NSAIDs at this time Monitor cell counts Discourage excessive alcohol intake Abd/Pelvis CT (10/08/16): Spleen enlarged measuring nearly 17 cm in cc dimension. There is dilatation of portal vein, and dilatation of splenic vein. Status: Acute (3) HCV (hepatitis C virus) Assessment and Plan: Hx of Hepatitis diagnosed 13 years ago Pt denies ever being treated Hepatitis Panel: Hep Bs Ag - confirmatory positive H, Hep C Antibody reactive. HIV negative AST/ALT: 53/43 Total Bilirubin elevated 2.3, albumin low 2.4 Repeat LFTs for tomorrow Instructed patient to [facility] for LFT[facility] Abd/Pelvis CT (10/08/16): findings consistent with hepatic cirrhosis associated with secondary stigmata. Heterogenous appearance of hepatic parenchyma. Scattered low attenuation foci likely representing hepatic cysts. Marked splenomegaly. Status: Chronic (4) Polysubstance abuse Assessment and Plan: Hx of cocaine, heroin and alcohol use Hx of HCV Hepatitis B infection Patient counseled; coping mechanisms discussed Management per Psych Status: Chronic (5) Depression with suicidal ideation Assessment and Plan: Management per psych, however, patient refusing psych medications Status: Acute (6) Prophylactic measure Assessment and Plan: Ambulates at this time Hold all NSAIDs at this time to decrease risk of bleeding Status: Acute <Mercedez Polanco V - Last Filed: 02/08/17 00:12> Objective - Vital Signs/Intake and Output Vital Signs (last 24 hours): Temp Pulse Resp BP Pulse Ox 98.0 F 70 20 115/58 L 73 L 02/07/17 07:48 02/07/17 07:48 02/07/17 15:50 02/07/17 15:50 02/07/17 15:50 - Medications Medications: Current Medications Al Hydrox/Mg Hydrox/Simethicone (Maalox 30 Ml) 30 ml PO Q8H PRN PRN Reason: Indigestion / Heartburn Last Admin: 02/07/17 21:25 Dose: 30 ml Clonidine HCl (Catapres) 0.1 mg PO Q6 PRN PRN Reason: opiate withdrawal Gabapentin (Neurontin) 100 mg PO TID [facility] Last Admin: 02/07/17 21:29 Dose: Not Given Hydroxyzine HCl (Atarax) 25 mg PO Q6 PRN PRN Reason: Anxiety Last Admin: 02/03/17 21:01 Dose: 25 mg Quetiapine Fumarate (Seroquel) 50 mg PO BID [facility] Last Admin: 02/07/17 21:29 Dose: Not Given Sertraline HCl (Zoloft) 200 mg PO DAILY [facility] Last Admin: 02/07/17 09:26 Dose: Not Given Trazodone HCl (Desyrel) 100 mg PO HS PRN PRN Reason: Insomnia Last Admin: 02/07/17 21:25 Dose: 100 mg Triamcinolone Acetonide (Kenalog 0.1% Cream) 0 appl TOP BID [facility] Last Admin: 02/07/17 21:26 Dose: 1 appl - Labs Labs: 02/07/17 08:28 02/07/17 08:28 Attending/Attestation - Attestation I have personally seen and examined this patient.: Yes I have fully participated in the care of the patient.: Yes I have reviewed all pertinent clinical information, including history, physical exam and plan: Yes Notes (Text): This is late computer entry for 02/07/17. Patient seen, examined, and case discussed with daytime resident. Patient reports rash is about the same, does not bother him. Patient is refusing psych medications at this time. Patient reports food is tasting like cardboard but is eating supplements. Patient is allowed for cream for the rash but does not seem improved. Patient is pancytopenic contributing factors including hepatitis C/B (untreated) , hepatic cirrhosis, splenomegaly, and portal hypertension, in addition to illict drug use. Heme-onc consult for further recommendations. Will need to follow-up with heme-onc and GI outpatient.
[2017-02-07 15:50] VITALS: O2SAT 73
[2017-02-07] MEDS: Aluminum Hydroxide/Magnesium Hydroxide Susp (30 mL) PO PRN (21:25)
--- NOTE | 2017-02-08 01:33 | PCM.PYCHPN ---
Psychiatric Progress Note - Psychiatric Progress Note Patient seen today, length of contact: 15 min Patient Chief Complaint: i have no appetite. I stopped taking the remeron Problems Identified/Issues Discussed: side effects of meds usual and unusual PAWS Medical Problems: nothing acute Diagnostic Results: reviewed DSM 5 Symptoms Update: still aenergic mildly increased motivation Medication Change: No Medical Record Reviewed: Yes Mental Status Examination - Cognitive Function Orientation: Person, Situation, Time Memory: Intact Attention: WNL Concentration: Poor Association: WNL Fund of Knowledge: WNL - Mood Mood: Depressed, Anxious - Affect Affect: Constricted - Speech Speech: Soft - Formal Thought Process Formal Thought Process: Paranoia - Suicidal Ideation Suicidal Ideation: No - Homicidal Ideation Homicidal Ideation: No Goal/Treatment Plan - Goal/Treatment Plan Need for Continued Stay: Remain at risks for inpatient hospitalization, Discharge may exacerbated symptoms, Severe functional impairment Progress Toward Problem(s) and Goals/Treatment Plan: does not feel hopeless, helpless or worthless Estimated Date of D/C: 02/08/17 - Smoking Cessation Smoking Cessation Initiated: No
--- NOTE | 2017-02-08 01:38 | PCM.PYCHPN ---
Psychiatric Progress Note - Psychiatric Progress Note Patient seen today, length of contact: 15 min Patient Chief Complaint: i knew i had hep c but not hep b i am refusing meds because they make me foggy Problems Identified/Issues Discussed: PAWS aftercare including [facility] Medical Problems: hep B Diagnostic Results: reviewed Medication Change: No Medical Record Reviewed: Yes Mental Status Examination - Cognitive Function Orientation: Person, Situation, Time Memory: Intact Attention: WNL Concentration: Poor Association: WNL - Mood Mood: Depressed, Anxious - Affect Affect: Constricted - Speech Speech: Soft - Formal Thought Process Formal Thought Process: Paranoia - Suicidal Ideation Suicidal Ideation: No - Homicidal Ideation Homicidal Ideation: No Goal/Treatment Plan - Goal/Treatment Plan Need for Continued Stay: Remain at risks for inpatient hospitalization, Discharge may exacerbated symptoms, Severe functional impairment Progress Toward Problem(s) and Goals/Treatment Plan: med and tx adherence Estimated Date of D/C: 02/08/17 - Smoking Cessation Smoking Cessation Initiated: No
--- NOTE | 2017-02-08 10:14 | PCM.PYCHPN ---
Psychiatric Progress Note - Psychiatric Progress Note Patient seen today, length of contact: 15 min Patient Chief Complaint: I am feeling depressed. Problems Identified/Issues Discussed: Patient seen and evaluated, chart reviewed and discussed with the nurse.Patient seems withdrawn and complains of fatigue and sleeping excessively. He has not eaten for three days which he attributes to his medications suppressing his appetite. Pt reports that the rash is getting better. Denies visual and auditory hallucinations, thoughts of hurting self or others or persecutory delusions. Supportive therapy and PsychEducation were provided. Medication Change: Yes (stop seroquel, stop gabapentin) Medical Record Reviewed: Yes Mental Status Examination - Cognitive Function Orientation: Person, Situation, Time Memory: Intact Attention: WNL Concentration: Poor Association: WNL - Mood Mood: Depressed, Anxious - Affect Affect: Constricted - Speech Speech: Soft - Formal Thought Process Formal Thought Process: Paranoia - Suicidal Ideation Suicidal Ideation: No - Homicidal Ideation Homicidal Ideation: No Goal/Treatment Plan - Goal/Treatment Plan Need for Continued Stay: Remain at risks for inpatient hospitalization, Discharge may exacerbated symptoms, Severe functional impairment Progress Toward Problem(s) and Goals/Treatment Plan: Major depressive disorder recurrent severe with psychotic features CBT Psychoeducation Supportive therapy, individual therapy Zoloft 200 mg PO Daily Remeron 15 mg PO QHS Trazodone 150 mg pO QHS d/c Neurontin 100 mg PO TID d/c Seroquel 50 mg PO BID Alcohol use disorder severe CBT Psychoeducation Supportive therapy, individual therapy Use [place] for abstinence Cocaine use disorder moderate CBT Psychoeducation Supportive therapy, individual therapy Use [place] for abstinence Estimated Date of D/C: 02/08/17
--- NOTE | 2017-02-08 12:19 | CP.PCM.PN ---
<Ba Nugent - Last Filed: 02/08/17 16:21> Subjective - Date & Time of Evaluation Date of Evaluation: 02/08/17 Time of Evaluation: 11:11 - Subjective Subjective: PGY 1 Medicine Note- Dr. Polanco's service Pt seen and examined in no acute distress. Patient reports improvement of rash. He denies subjective fevers or chills, abdominal pain, chest pain, palpitations , nausea, vomiting, diarrhea, paresthesias. Objective - Vital Signs/Intake and Output Vital Signs (last 24 hours): Temp Pulse Resp BP Pulse Ox 97.3 F L 75 18 117/63 73 L 02/08/17 07:59 02/08/17 07:59 02/08/17 07:59 02/08/17 07:59 02/07/17 15:50 - Medications Medications: Current Medications Al Hydrox/Mg Hydrox/Simethicone (Maalox 30 Ml) 30 ml PO Q8H PRN PRN Reason: Indigestion / Heartburn Last Admin: 02/07/17 21:25 Dose: 30 ml Clonidine HCl (Catapres) 0.1 mg PO Q6 PRN PRN Reason: opiate withdrawal Hydroxyzine HCl (Atarax) 25 mg PO Q6 PRN PRN Reason: Anxiety Last Admin: 02/03/17 21:01 Dose: 25 mg Sertraline HCl (Zoloft) 200 mg PO DAILY [facility] Last Admin: 02/08/17 10:13 Dose: 200 mg Trazodone HCl (Desyrel) 100 mg PO HS PRN PRN Reason: Insomnia Last Admin: 02/07/17 21:25 Dose: 100 mg Triamcinolone Acetonide (Kenalog 0.1% Cream) 0 appl TOP BID [facility] Last Admin: 02/08/17 10:13 Dose: 1 appl - Labs Labs: 02/07/17 08:28 02/07/17 08:28 - Constitutional Appears: Non-toxic, No Acute Distress - Head Exam Head Exam: ATRAUMATIC, NORMAL INSPECTION, NORMOCEPHALIC - Eye Exam Eye Exam: EOMI, Normal appearance, PERRL Pupil Exam: NORMAL ACCOMODATION - ENT Exam ENT Exam: Mucous Membranes Moist - Neck Exam Neck Exam: Full ROM - Respiratory Exam Respiratory Exam: Clear to Ausculation Bilateral. absent: Wheezes - Cardiovascular Exam Cardiovascular Exam: REGULAR RHYTHM, +S1, +S2 - GI/Abdominal Exam GI & Abdominal Exam: Soft, Normal Bowel Sounds - Extremities Exam Extremities Exam: Full ROM, Normal Capillary Refill - Back Exam Back Exam: Full ROM - Neurological Exam Neurological Exam: Alert, Awake, CN II-XII Intact, Oriented x3 - Psychiatric Exam Psychiatric exam: Normal Affect, Normal Mood - Skin Skin Exam: Dry, Rash Additional comments: erythematous well demarcated rash on the shins b/l. non-blanchable Assessment and Plan (1) Contact eczematous dermatitis Status: Acute (2) Pancytopenia Status: Acute (3) HCV (hepatitis C virus) Status: Chronic (4) Polysubstance abuse Status: Chronic (5) Depression with suicidal ideation Status: Acute (6) Prophylactic measure Status: Acute - Assessment and Plan (Free Text) Assessment: (1) Contact Dermatitis Assessment and Plan: Continue Triamcinolone cream applied topically to affected shins twice daily for two weeks. Possible petechial in nature, platelets 56 Venous Dopplers negative Status: Acute (2) Pancytopenia Assessment and Plan: WBC 2.8, Hemoglobin 11.7, Hematocrit 34.4, Platelets 56, Neut 1.5 likely secondary to splenomegaly noted on previous Abd/Pelvis CT Heme/onc, Dr. Crisostomo, consulted. F/U recommendations History of Hepatitis C, no treatment Should follow-up with hematology/oncology as outpatient Hold NSAIDs at this time Monitor cell counts Discourage excessive alcohol intake Abd/Pelvis CT (10/08/16): Spleen enlarged measuring nearly 17 cm in cc dimension. There is dilatation of portal vein, and dilatation of splenic vein. Status: Acute (3) HCV (hepatitis C virus) Assessment and Plan: Hx of Hepatitis diagnosed 13 years ago Pt denies ever being treated Hepatitis Panel: Hep Bs Ag - confirmatory positive H, Hep C Antibody reactive. HIV negative AST/ALT: 53/43 Total Bilirubin elevated 2.3, albumin low 2.4 Repeat LFTs for tomorrow Instructed patient to follow-up in [facility] on discharge for LFTs Abd/Pelvis CT (10/08/16): findings consistent with hepatic cirrhosis associated with secondary stigmata. Heterogenous appearance of hepatic parenchyma. Scattered low attenuation foci likely representing hepatic cysts. Marked splenomegaly. Status: Chronic (4) Polysubstance abuse Assessment and Plan: Hx of cocaine, heroin and alcohol use Hx of HCV Hepatitis B infection Patient counseled; coping mechanisms discussed Management per Psych Status: Chronic (5) Depression with suicidal ideation Assessment and Plan: Management per psych Patient allowing some medications Status: Acute (6) Prophylactic measure Assessment and Plan: Ambulates at this time Hold all NSAIDs at this time to decrease risk of bleeding Encourage intake of food Status: Acute <Mercedez Polanco V - Last Filed: 05/10/17 20:36> Objective - Vital Signs/Intake and Output Vital Signs (last 24 hours): Temp Pulse Resp BP Pulse Ox 98 F 101 H 20 147/67 73 L 02/09/17 08:06 02/09/17 08:06 02/09/17 08:06 02/09/17 08:06 02/07/17 15:50 - Labs Labs: 02/09/17 08:05 02/09/17 08:05 Attending/Attestation - Attestation I have personally seen and examined this patient.: Yes I have fully participated in the care of the patient.: Yes I have reviewed all pertinent clinical information, including history, physical exam and plan: Yes Notes (Text): This is late computer entry for 02/08/17. Patient seen, examined, and case discussed with day-time resident. Discussed and agree with assessment and plan by day-time resident. Contact dermatitis Patient recommended to follow-up in the [facility] for medical management for chronic conditions.
[2017-02-08] MEDS: Aluminum Hydroxide/Magnesium Hydroxide Susp (30 mL) PO PRN ×2 (14:56→21:33)
--- NOTE | 2017-02-08 17:44 | VASCLAB ---
PROCEDURE: Lower Extremity Venous Duplex Exam. HISTORY: Leg swelling with Erythema PRIORS: None. TECHNIQUE: Bilateral common femoral, femoral, popliteal and posterior tibial, peroneal and great saphenous veins were evaluated. Flow was assessed with color Doppler, compressibility, assessment of phasic flow and augmentation response. Report prepared by MARE Osuna FINDINGS: RIGHT: 1. Common Femoral Vein: 1.1. Compressibility - Fully compressible: Thrombus - None : Flow - Phasic: Augmentation -Normal: Reflux - None. 2. Femoral Vein: 2.1. Compressibility - Fully compressible: Thrombus - None : Flow - Phasic: Augmentation -Normal: Reflux - None. 3. Popliteal Vein: 3.1. Compressibility - Fully compressible: Thrombus - None : Flow - Phasic: Augmentation -Normal: Reflux - Moderate. 4. Posterior Tibial Vein: 4.1. Compressibility - Fully compressible: Thrombus - None: Flow - Phasic: Augmentation -Normal: Reflux - None. 5. Peroneal Vein: 5.1. Compressibility - Fully compressible: Thrombus - None: Flow - Phasic: Augmentation -Normal: Reflux - None. 6. Great Saphenous Vein: 6.1. Compressibility - Fully compressible: Thrombus - None: Flow - Phasic: Augmentation - Normal: Reflux - None. LEFT: 1. Common Femoral Vein: 1.1. Compressibility - Fully compressible: Thrombus - None: Flow - Phasic: Augmentation -Normal: Reflux - None. 2. Femoral Vein: 2.1. Compressibility - Fully compressible: Thrombus - None: Flow - Phasic: Augmentation -Normal: Reflux - None. 3. Popliteal Vein: 3.1. Compressibility - Fully compressible: Thrombus - None : Flow - Phasic: Augmentation -Normal: Reflux - None. 4. Posterior Tibial Vein: 4.1. Compressibility - Fully compressible: Thrombus - None: Flow - Phasic: Augmentation -Normal: Reflux - None. 5. Peroneal Vein: 5.1. Compressibility - Fully compressible: Thrombus - None: Flow - Phasic: Augmentation -Normal: Reflux - None. 6. Great Saphenous Vein: 6.1. Compressibility - Fully compressible: Thrombus - None: Flow - Phasic: Augmentation - Normal: Reflux - None. OTHER FINDINGS: Right: None significant. Left: None significant. IMPRESSION: Right: No evidence of deep or superficial vein thrombosis of the right lower extremity. Moderate valvular incompetence of the right popliteal vein. Left: No evidence of deep or superficial vein thrombosis of the left lower extremity. Normal valve function noted of the left side.
--- NOTE | 2017-02-09 07:18 | CP.PCM.PN ---
<RaffiTrevorshea - Last Filed: 02/17/17 13:23> Subjective - Date & Time of Evaluation Date of Evaluation: 02/09/17 Time of Evaluation: 07:30 - Subjective Subjective: PGY 1 Medicine Note- Dr. Tariq's service Pt seen and examined in no acute distress. Patient states that rash is improving. Patient denies any pain at the site of rash. He denies any new onset rashes, fevers, chills, nausea, vomiting, diarrhea, chest pain, palpitations at this time. Objective - Vital Signs/Intake and Output Vital Signs (last 24 hours): Temp Pulse Resp BP Pulse Ox 97.3 F L 90 18 118/73 73 L 02/08/17 07:59 02/08/17 15:58 02/08/17 07:59 02/08/17 15:58 02/07/17 15:50 - Medications Medications: Current Medications Al Hydrox/Mg Hydrox/Simethicone (Maalox 30 Ml) 30 ml PO Q8H PRN PRN Reason: Indigestion / Heartburn Last Admin: 02/08/17 21:33 Dose: 30 ml Clonidine HCl (Catapres) 0.1 mg PO Q6 PRN PRN Reason: opiate withdrawal Hydroxyzine HCl (Atarax) 25 mg PO Q6 PRN PRN Reason: Anxiety Last Admin: 02/08/17 21:34 Dose: 25 mg Sertraline HCl (Zoloft) 200 mg PO DAILY [facility] Last Admin: 02/08/17 10:13 Dose: 200 mg Trazodone HCl (Desyrel) 100 mg PO HS PRN PRN Reason: Insomnia Last Admin: 02/08/17 21:34 Dose: 100 mg Triamcinolone Acetonide (Kenalog 0.1% Cream) 0 appl TOP BID [facility] Last Admin: 02/08/17 18:58 Dose: 1 appl - Labs Labs: 02/07/17 08:28 02/07/17 08:28 - Constitutional Appears: Non-toxic, No Acute Distress - Head Exam Head Exam: ATRAUMATIC, NORMAL INSPECTION, NORMOCEPHALIC - Eye Exam Eye Exam: EOMI, Normal appearance, PERRL Pupil Exam: NORMAL ACCOMODATION, PERRL - ENT Exam ENT Exam: Mucous Membranes Moist - Neck Exam Neck Exam: Full ROM - Respiratory Exam Respiratory Exam: Clear to Ausculation Bilateral, NORMAL BREATHING PATTERN. absent: Wheezes - Cardiovascular Exam Cardiovascular Exam: REGULAR RHYTHM, +S1, +S2 - GI/Abdominal Exam GI & Abdominal Exam: Soft, Normal Bowel Sounds - Extremities Exam Extremities Exam: Full ROM, Normal Capillary Refill. absent: Calf Tenderness, Pedal Edema, Tenderness Additional comments: rash noted on bilateral shins-less erythematous with smaller margins noted - Back Exam Back Exam: Full ROM - Neurological Exam Neurological Exam: Alert, Awake, CN II-XII Intact, Normal Gait, Oriented x3 - Psychiatric Exam Psychiatric exam: Anxious, Depressed - Skin Skin Exam: Dry, Intact, Rash (rash noted on bilateral shins-less erythematous with smaller margins noted), Warm. absent: Diaphoretic Additional comments: non-blanchable Assessment and Plan (1) Contact eczematous dermatitis Status: Acute (2) Pancytopenia Status: Acute (3) HCV (hepatitis C virus) Status: Chronic (4) Polysubstance abuse Status: Chronic (5) Depression with suicidal ideation Status: Acute (6) Prophylactic measure Status: Acute - Assessment and Plan (Free Text) Assessment: (1) Contact Dermatitis Assessment and Plan: Improving Continue Triamcinolone cream applied topically to affected shins twice daily for two weeks. Prescription provided upon discharge Venous Dopplers negative Status: Acute (2) Pancytopenia Assessment and Plan: WBC 2.9, Hemoglobin 11.8, Hematocrit 33.6, Platelets 53, Neut 1.6 ( stable) likely secondary to splenomegaly noted on previous Abd/Pelvis CT Heme/onc, Dr. Crisostomo, consulted. Patient instructed to follow up in [facility] clinic for follow up care. Patient can obtain referral and hopefully follow-up with hematology/oncology as outpatient History of Hepatitis C, no treatment Hold NSAIDs at this time Monitor cell counts Discourage excessive alcohol intake Abd/Pelvis CT (10/08/16): Spleen enlarged measuring nearly 17 cm in cc dimension. There is dilatation of portal vein, and dilatation of splenic vein. Status: Acute (3) HCV (hepatitis C virus) Assessment and Plan: Hx of Hepatitis diagnosed 13 years ago Pt denies ever being treated Hepatitis Panel: Hep Bs Ag - confirmatory positive H, Hep C Antibody reactive. HIV negative AST/ALT: 53/43 Total Bilirubin elevated 2.3, albumin low 2.4 Repeat LFTs for tomorrow Instructed patient to follow-up in [facility] on discharge for LFTs Abd/Pelvis CT (10/08/16): findings as noted above Status: Chronic (4) Polysubstance abuse Assessment and Plan: Hx of cocaine, heroin and alcohol use Hx of HCV Hepatitis B infection Patient counseled; coping mechanisms discussed Management per Psych Status: Chronic (5) Depression with suicidal ideation Assessment and Plan: Management per psych Patient allowing some medications Status: Acute (6) Prophylactic measure Assessment and Plan: Ambulates at this time Hold all NSAIDs at this time to decrease risk of bleeding Encourage intake of food Status: Acute Disposition management per Psych: Patient instructed to follow up in [facility] for follow up care. <Eric Tariq - Last Filed: 03/17/17 10:56> Objective - Vital Signs/Intake and Output Vital Signs (last 24 hours): Temp Pulse Resp BP Pulse Ox 98 F 101 H 20 147/67 73 L 02/09/17 08:06 02/09/17 08:06 02/09/17 08:06 02/09/17 08:06 02/07/17 15:50 - Labs Labs: 02/09/17 08:05 02/09/17 08:05 Attending/Attestation - Attestation I have personally seen and examined this patient.: Yes I have fully participated in the care of the patient.: Yes I have reviewed all pertinent clinical information, including history, physical exam and plan: Yes Notes (Text): Patient Seen and examined with the resident. Agree with the resident's evaluation, assessment and plan. contact dermatitis
[2017-02-09 08:07] VITALS: BP 147/67; PULSE 101; RESP 20; TEMP 98
[2017-02-09 08:11] LABS: BASO % 0.5 % (0.0-2.0); EOS # 0.2 K/uL (0.0-0.7); EOS % 5.9 % (0.0-4.0); HEMATOCRIT 33.6 % (35.0-51.0); LYMPH # 0.8 K/uL (1.0-4.3); LYMPH % 28.4 % (20.0-40.0); MEAN CELL VOLUME 92.6 fL (80.0-94.0); MEAN CORPUSCULAR HEMOGLOBIN 32.5 pg (27.0-31.0); MEAN CORPUSCULAR HGB CONC 35.1 g/dL (33.0-37.0); MEAN PLATELET VOLUME 7.5 fL (7.2-11.7); MONO # 0.3 K/uL (0.0-0.8); MONO % 9.2 % (0.0-10.0); WHITE BLOOD COUNT 2.9 K/uL (4.8-10.8)
[2017-02-09 08:25] LABS: CHLORIDE 109 mmol/L (98-107); SODIUM 139 mmol/L (132-148)
[2017-02-09 08:27] LABS: ALB/GLOB RATIO 0.8 (1.0-2.1); ALKALINE PHOSPHATASE 106 U/L (38-126); ALT/SGPT 41 U/L (21-72); AST/SGOT 59 U/L (17-59); BLOOD UREA NITROGEN 11 mg/dL (9-20); CARBON DIOXIDE 23 mmol/L (22-30); GFR AFRICAN-AMERICAN > 60; TOTAL PROTEIN 6.2 g/dL (6.3-8.3)
[2017-02-09 08:28] LABS: CALCIUM 7.7 mg/dl (8.6-10.4); GLUCOSE,RANDOM 104 mg/dL (75-110); MAGNESIUM 2.1 mg/dL (1.6-2.3)
[2017-02-09] MEDS: Aluminum Hydroxide/Magnesium Hydroxide Susp (30 mL) PO PRN (10:03)
--- NOTE | 2017-02-09 10:07 | PCM.PYCHDC ---
Mental Status Examination - Mental Status Examination Orientation: Person, Place, Situation, Time Memory: Intact Mood: Neutral Affect: Constricted Speech: Soft Attention: WNL Concentration: WNL Association: WNL Fund of Knowledge: WNL Formal Thought Process: No Impairment Description of patient's judgement and insight: good, fair Psychotic Thoughts and Behaviors: denies any AVH Suicidal Ideation: No Current Homicidal Ideation?: No Discharge Summary - Discharge Note Reason for Hospitalization: Patient is a 41 years old male who is currently homeless, came to the ED with a history of major depressive disorder and alcohol use disorder came to the hospital because of depressed mood and suicidal ideation with a plan to kill OD. Patient reports a long history of depressive disorder. As per the patient he has been admitted multiple times in psychiatric hospitals, [place] [facility] [place]. As per the patient he stopped following up with his psychiatrist and started drinking. He has been drinking more than 6-10 48 oz beers on a daily basis. He stopped drinking 1 weeks ago, but started becoming increasingly depressed. As per the patient he doesnt have any family, and job and doesnt have any place to live. Yesterday he became increasingly depressed and suicidal, so came to the hospital to get help. Patient reports of depressed mood, and reports of feelings of hopelessness or helplessness. He says that, 'there is no use of living like this.' He also reports of anhedonia, poor appetite and insomnia. Patient denies any racing of thoughts, flight of ideas or any manic symptoms. He also denies any auditory or visual hallucinations or any psychotic symptoms. Denies any homicidal ideation. Patient denies any drugs use. Laboratory Data: Abnormal Lab Results 02/09/17 02/09/17 08:05 08:05 WBC 2.9 L RBC 3.63 L Hgb 11.8 L Hct 33.6 L MCV 92.6 MCH 32.5 H MCHC 35.1 RDW 16.0 H Plt Count 53 L MPV 7.5 Neut % (Auto) 56.0 Lymph % (Auto) 28.4 [place] % (Auto) 9.2 Eos % (Auto) 5.9 H Baso % (Auto) 0.5 Neut # 1.6 L Lymph # 0.8 L [place] # 0.3 Eos # 0.2 Baso # 0.0 Sodium 139 Potassium 4.0 Chloride 109 H Carbon Dioxide 23 Anion Gap 12 BUN 11 Creatinine 0.5 L Est GFR ( Amer) > 60 Est GFR (Non-Af Amer) > 60 Random Glucose 104 Calcium 7.7 L Phosphorus 4.0 Magnesium 2.1 Total Bilirubin 2.0 H AST 59 ALT 41 Alkaline Phosphatase 106 Total Protein 6.2 L Albumin 2.7 L Globulin 3.5 Albumin/Globulin Ratio 0.8 L Consultations:: List each consultation separately and include: 1. Reason for request. 2. Findings. 3. Follow-up Summary of Hospital Course include:: 1. Description of specific treatment plan utilized for patients during their course of treatmen. 2. Summarize the time- course for resolution of acute symptoms and/or regressed behaviors. 3. Describe issues identified and worked on during hospitalization. 4. Describe medication utilized. 5. Describe medical problems identified and treated. 6. Reassessment of suicide risk Summary of Hospital Course: During the course of his stay, patient (pt) started progressively improving and he no longer remained irritable, depressed, and suicidal. His mood was improved and he started attending groups and meetings and started socializing. Patient denied any feelings of hopelessness, helplessness, and worthlessness, denied any problem with the sleep or appetite, denied suicidal ideation or homicidal ideation. Pt denied any auditory or visual hallucinations. Some changes were made in his current medications and patient was discharged on following medications. He tolerated these medications very well and denied any side effects. - Final Diagnosis (DSM 5) Condition upon Discharge: FAIR DSM 5: Major depressive disorder recurrent severe with psychotic features Alcohol use disorder severe Cocaine use disorder moderate Disposition: HOME/ ROUTINE Follow-up Treatment Plan: Education: Pt was educated and counseled about the risks and benefits of taking and not taking medications. Pt was educated and counseled about the risks of drinking and abusing drugs. Pt was educated and counseled to go to the ER or call 911 if pt develop suicidal ideation or homicidal ideation, worsening of symptoms or severe side effects of the meds. Prescriptions/Medication Reconciliation: Sertraline [Zoloft] 100 mg PO DAILY #60 tab traZODone [Desyrel] 100 mg PO HS PRN #30 tab PRN Reason: Insomnia - Smoking Cessation Smoking Cessation Medication prescribed: No - Antipsychotic Medications Pt discharged on 2 or more routine antipsychotic medications: No
== END 2017-02-09 12:45 | disposition home or self-care (01) | DRG 430 ==
LOC: C.ER 20:34 → C.5E 01-30 00:39
PROVIDERS: ADMIT Psychiatry & Neurology Psychiatry; ATTEND Psychiatry & Neurology Psychiatry
PROC: HZ32ZZZ Individual Counseling for Substance Abuse Treatment, Cognitive-Behavioral (ICD-10-PCS; principal; 2017-01-30)
PROC: HZ36ZZZ Individual Counseling for Substance Abuse Treatment, Psychoeducation (ICD-10-PCS; 2017-01-30)
PROC: GZ56ZZZ Individual Psychotherapy, Supportive (ICD-10-PCS; 2017-01-30)
DX: F33.3 Major depressive disorder, recurrent, severe with psychotic symptoms (principal); D61.818 Other pancytopenia; K76.6 Portal hypertension; B19.10 Unspecified viral hepatitis B without hepatic coma; J44.9 Chronic obstructive pulmonary disease, unspecified; F11.10 Opioid abuse, uncomplicated; B19.20 Unspecified viral hepatitis C without hepatic coma; K74.69 Other cirrhosis of liver; I10 Essential (primary) hypertension; F43.10 Post-traumatic stress disorder, unspecified; Z59.0 Homelessness; F10.10 Alcohol abuse, uncomplicated; Y90.0 Blood alcohol level of less than 20 mg/100 ml; H71.92 Unspecified cholesteatoma, left ear; F17.210 Nicotine dependence, cigarettes, uncomplicated; R45.851 Suicidal ideations; L25.9 Unspecified contact dermatitis, unspecified cause; R16.1 Splenomegaly, not elsewhere classified